=== PATIENT | female | born 1990 | race Hispanic/Latino ===

== ENCOUNTER 2017-07-21 12:27 | Emergency (ER) | payer OTHER ==
[~2017-07-21 12:27] MED LIST: IBUP-2353 PO; NORE-109 PO
[2017-07-21 12:48] LABS: APPEARANCE,URINE Clear (CLEAR); BILIRUBIN,URINE Negative (NEGATIVE); COLOR,URINE Yellow (YELLOW); GLUCOSE, URINE (UA) Negative (NEGATIVE); KETONES,URINE Negative (NEGATIVE); LEUKOCYTE ESTERASE ,URINE Negative (NEGATIVE); NITRATE,URINE Negative (NEGATIVE); OCCULT BLOOD,URINE Negative (NEGATIVE); PROTEIN,URINE Negative (NEGATIVE); UROBILINOGEN,URINE 0.2 mg/dL (0.2-1.0)
[2017-07-21 14:06] LABS: BASOPHILS % (AUTO) 0.8 % (0.0-5.0); EOSINOPHILS % (AUTO) 2.2 % (0.0-8.0); HEMATOCRIT 32.2 % (36-48); LYMPHOCYTES % (AUTO) 23.2 % (21.0-51.0); MEAN CORPUSCULAR HEMOGLOBIN 23.2 pg (27.0-33.0); MEAN CORPUSCULAR HGB CONC 32.7 g/dL (32.0-36.0); MEAN CORPUSCULAR VOLUME 70.9 fL (79-99); MONOCYTES % (AUTO) 7.8 % (3.0-13.0); PLATELET COUNT (AUTO) 292 K/uL (130-400); RED BLOOD CELL COUNT(AUTO) 4.54 MIL/uL (4.00-5.50); RED CELL DISTRIBUTION WIDTH 15.4 % (11.0-15.5); WHITE BLOOD COUNT (AUTO) 8.4 K/uL (4.8-10.8)
[2017-07-21 14:17] LABS: CREATININE 0.6 mg/dL (0.5-1.5); POTASSIUM 3.5 mmol/L (3.5-5.1)
[2017-07-21 15:18] LABS: RAPID GROUP A STREP NEGATIVE (NEGATIVE)
== END 2017-07-21 16:18 | disposition home or self-care (01) ==
LOC: EDH 12:27
DX: B34.9 Viral infection, unspecified (principal); K13.70 Unspecified lesions of oral mucosa; Z88.6 Allergy status to analgesic agent
CPT/HCPCS: 36415; 71046; 74176; 80048; 81003; 81025; 85025; 87804; 87880

== ENCOUNTER → 2017-09-20 | Outpatient (CLI) | payer OTHER ==
[~2017-09-20] MED LIST changes: +iron PO
== END | disposition home or self-care (01) ==
LOC: RAH 13:33
PROVIDERS: ATTEND Obstetrics & Gynecology
DX: N83.01 Follicular cyst of right ovary (principal)
CPT/HCPCS: 76856

== ENCOUNTER 2017-10-06 12:30 | Emergency (ER) | payer OTHER ==
[~2017-10-06 12:30] MED LIST changes: -iron PO
[2017-10-06] MEDS ORDERED: DIPHENHYDRAMINE HCL 25 MG CAPSULE ONE (12:35)
[2017-10-06] MEDS ORDERED: PREDNISONE 20 MG TABLET ONE (13:18)
== END 2017-10-06 13:27 | disposition home or self-care (01) ==
LOC: EDH 12:30
DX: L50.0 Allergic urticaria (principal); Z87.891 Personal history of nicotine dependence
CPT/HCPCS: 99283; Q0163

== ENCOUNTER 2017-10-21 13:45 | Inpatient (IN) | payer OTHER ==
[~2017-10-21] VITALS: Ht 157.5 cm; Wt 68.9 kg
[2017-11-15 09:28] LABS: EOSINOPHILS % (AUTO) 2.6 % (0.0-8.0); LYMPHOCYTES % (AUTO) 22.1 % (21.0-51.0); MEAN CORPUSCULAR HGB CONC 33.7 g/dL (32.0-36.0); MEAN CORPUSCULAR VOLUME 71.3 fL (79-99); MONOCYTES % (AUTO) 7.8 % (3.0-13.0); NEUTROPHILS % (AUTO) 66.5 % (40.0-77.0); PLATELET COUNT (AUTO) 284 K/uL (130-400); RED BLOOD CELL COUNT(AUTO) 4.63 MIL/uL (4.00-5.50); RED CELL DISTRIBUTION WIDTH 19.6 % (11.0-15.5); WHITE BLOOD COUNT (AUTO) 4.8 K/uL (4.8-10.8)
[2017-11-15 09:30] VITALS: BP 128/63
[2017-11-15] MEDS: CEFAZOLIN SODIUM 1 GM VIAL IVP SCH (10:15)
[2017-11-15] MEDS ORDERED: iron PO (10:36)
[2017-11-16] MEDS: CEFAZOLIN SODIUM 1 GM VIAL IVP SCH (10:15)
[2017-11-17] VITALS (20 sets, daily range): BP systolic 103–143; BP diastolic 62–98
[2017-11-17] MEDS ORDERED: LACTATED RINGERS 1000ML 1,000 ML IV ONE (06:30)
[2017-11-17] MEDS ORDERED: LIDOCAINE PF 2% 5ML ABBOJECT ONE (06:47)
[2017-11-17] MEDS ORDERED: ONDANSETRON HCL 4 MG/2 ML VIAL ONE (06:47)
[2017-11-17] MEDS ORDERED: DEXAMETHASONE SOD PHOSPHATE 10MG/ML 1ML VIAL ONE (06:47)
[2017-11-17] MEDS ORDERED: NEOSTIGMINE 5MG/5ML SYR IV ONE (06:47)
[2017-11-17] MEDS ORDERED: SUCCINYLCHOLINE 200MG/10ML SYR ONE (06:47)
[2017-11-17] MEDS ORDERED: GLYCOPYRROLATE 0.2 MG/ML 5 ML VIAL ONE (06:47)
[2017-11-17] MEDS ORDERED: PROPOFOL 10 MG/ML 20ML VIAL IV ONE (06:48)
[2017-11-17] MEDS ORDERED: FENTANYL CITRATE PF 50 MCG/1 ML 2ML VIAL ONE ×4 (06:48→10:11)
[2017-11-17] MEDS ORDERED: MIDAZOLAM HCL 1 MG/ML 2ML VIAL ONE (06:48)
[2017-11-17] MEDS ORDERED: ROCURONIUM BROMIDE 10MG/1ML 5ML VL ONE (06:50)
[2017-11-17] MEDS ORDERED: CALDOLOR 800MG+NS 250ML 250 ML IV SCH (06:59)
[2017-11-17] MEDS ORDERED: KETOROLAC TROMETHAMINE 30MG/ML IV SCH (07:15)
[2017-11-17] MEDS: CEFAZOLIN SODIUM 1 GM VIAL IVP SCH ×2 (07:20→10:15)
[2017-11-17] MEDS ORDERED: SIMETHICONE 80 MG TAB.CHEW PO PRN (09:15)
[2017-11-17] MEDS ORDERED: BISACODYL 10 MG SUPP.RECT RC PRN (09:15)
[2017-11-17] MEDS ORDERED: MEPERIDINE-PF 25 MG/ML SYG ONE ×2 (09:19→09:32)
[2017-11-17] MEDS: PROMETHAZINE HCL 25 MG/ML 1ML AMPULE IM PRN ×5 (09:22→20:43)
[2017-11-17] MEDS: MEPERIDINE-PF 75 MG/ML SYG IM PRN ×5 (10:59→23:59)
[2017-11-17] MEDS: DEXTROSE 5%-LACTATED RINGERS 1,000 ML IV PRN ×2 (11:34→18:38)
[2017-11-18 00:55] VITALS: BP 105/49
[2017-11-18] MEDS: DEXTROSE 5%-LACTATED RINGERS 1,000 ML IV PRN (02:54)
[2017-11-18] MEDS: MEPERIDINE-PF 75 MG/ML SYG IM PRN (03:42)
[2017-11-18 04:35] VITALS: BP 111/58
[2017-11-18 06:42] LABS: HEMATOCRIT 28.7 % (36-48); MEAN CORPUSCULAR HEMOGLOBIN 23.7 pg (27.0-33.0); MEAN CORPUSCULAR HGB CONC 33.4 g/dL (32.0-36.0); MEAN CORPUSCULAR VOLUME 70.9 fL (79-99); PLATELET COUNT (AUTO) 270 K/uL (130-400); RED BLOOD CELL COUNT(AUTO) 4.05 MIL/uL (4.00-5.50); WHITE BLOOD COUNT (AUTO) 8.7 K/uL (4.8-10.8)
[2017-11-18] MEDS ORDERED: HYDROCODONE/ACETAMINOPHEN 5/325 MG TAB PO PRN ×2 (08:00)
[2017-11-18 08:06] VITALS: BP 106/51
[2017-11-18] MEDS ORDERED: IBUPROFEN 800 MG TAB ONE (08:20)
[2017-11-18] MEDS: DOCUSATE SODIUM 100 MG CAP PO PRN ×2 (08:41→21:27)
[2017-11-18] MEDS: IBUPROFEN 800 MG TAB PO SCH ×2 (08:43→17:53)
[2017-11-18] MEDS: CEFAZOLIN SODIUM 1 GM VIAL IVP SCH (10:15)
[2017-11-18 12:20] VITALS: BP 104/62
[2017-11-18] MEDS: TRAMADOL HCL 50 MG TABLET PO PRN ×2 (14:14→19:58)
[2017-11-18 15:55] VITALS: BP 108/69
[2017-11-18] MEDS: SIMETHICONE 80 MG TAB.CHEW PO PRN ×3 (17:00→21:27)
[2017-11-18 20:42] VITALS: BP 102/59
[2017-11-19 00:32] VITALS: BP 102/56
[2017-11-19] MEDS: IBUPROFEN 800 MG TAB PO SCH ×2 (01:16→09:08)
[2017-11-19 04:24] VITALS: BP 98/58
[2017-11-19] MEDS: TRAMADOL HCL 50 MG TABLET PO PRN (07:42)
[2017-11-19 07:53] VITALS: BP 97/62
[2017-11-19] MEDS: DOCUSATE SODIUM 100 MG CAP PO PRN (09:07)
[2017-11-19] MEDS: SIMETHICONE 80 MG TAB.CHEW PO PRN (09:07)
[2017-11-19 12:03] VITALS: BP 98/62
== END 2017-11-19 13:05 | disposition home or self-care (01) | DRG 743 ==
LOC: EDSTATUS 11-15 08:00 → DAHIP 11-17 05:57 → WSH 11-17 10:25
PROVIDERS: ADMIT Obstetrics & Gynecology; ATTEND Obstetrics & Gynecology
PROC: 0UT90ZZ Resection of Uterus, Open Approach (ICD-10-PCS; principal; 2017-11-17 07:15)
DX: N94.6 Dysmenorrhea, unspecified (principal); G89.29 Other chronic pain; N73.6 Female pelvic peritoneal adhesions (postinfective); N80.9 Endometriosis, unspecified; N92.0 Excessive and frequent menstruation with regular cycle; N85.4 Malposition of uterus
CPT/HCPCS: 36415; 84703; 85025; 85027; 86850; 86900; 86901; 88307; A4218; A4344; J0330; J0690; J1100; J1741; J2001; J2175; J2250; J2405; J2550; J2704; J2710; J3010; J3490; J7030; J7120

== ENCOUNTER 2018-04-06 16:03 | Emergency (ER) | payer OTHER ==
[2018-04-06] MEDS ORDERED: IBUPROFEN 200 MG TAB ONE (16:16)
[2018-04-06] MEDS ORDERED: IBUPROFEN 400 MG TABLET ONE (16:16)
== END 2018-04-06 17:06 | disposition home or self-care (01) ==
LOC: EDH 16:03
DX: S43.491A Other sprain of right shoulder joint, initial encounter (principal); Z88.6 Allergy status to analgesic agent; Z90.710 Acquired absence of both cervix and uterus; Z98.51 Tubal ligation status; X58.XXXA Exposure to other specified factors, initial encounter; Y93.89 Activity, other specified; Y92.89 Other specified places as the place of occurrence of the external cause; Y99.8 Other external cause status
CPT/HCPCS: 73030

== ENCOUNTER → 2018-05-11 | Outpatient (CLI) | payer OTHER | END | disposition home or self-care (01) | LOC: RAH 13:09 | PROVIDERS: ATTEND Family Medicine | DX: S43.401A Unspecified sprain of right shoulder joint, initial encounter (principal); M19.011 Primary osteoarthritis, right shoulder; X58.XXXA Exposure to other specified factors, initial encounter; Y93.89 Activity, other specified; Y92.89 Other specified places as the place of occurrence of the external cause; Y99.8 Other external cause status | CPT/HCPCS: 73221 ==

== ENCOUNTER 2018-10-21 22:49 | Emergency (ER) | payer OTHER ==
[2018-10-21 23:39] LABS: APPEARANCE,URINE Clear (CLEAR); BILIRUBIN,URINE Negative (NEGATIVE); COLOR,URINE Yellow (YELLOW); GLUCOSE, URINE (UA) Negative (NEGATIVE); KETONES,URINE Trace mg/dL (NEGATIVE); LEUKOCYTE ESTERASE ,URINE Moderate (NEGATIVE); NITRATE,URINE Negative (NEGATIVE); OCCULT BLOOD,URINE Negative (NEGATIVE); PROTEIN,URINE Negative (NEGATIVE)
[2018-10-21 23:51] LABS: BACTERIA,URINE Many /HPF (None Seen); RBC,URINE 0-1 /HPF (0-1); SQUAMOUS EPITHELIAL CELL,UR Few /HPF (0-2)
[2018-10-21 23:53] LABS: BASOPHILS % (AUTO) 0.9 % (0.0-5.0); EOSINOPHILS % (AUTO) 2.5 % (0.0-8.0); HEMATOCRIT 34.7 % (36-48); LYMPHOCYTES % (AUTO) 27.1 % (21.0-51.0); MEAN CORPUSCULAR HEMOGLOBIN 26.9 pg (27.0-33.0); MEAN CORPUSCULAR HGB CONC 33.7 g/dL (32.0-36.0); MONOCYTES % (AUTO) 9.6 % (3.0-13.0); NEUTROPHILS % (AUTO) 59.9 % (40.0-77.0); PLATELET COUNT (AUTO) 272 K/uL (130-400); RED BLOOD CELL COUNT(AUTO) 4.34 MIL/uL (4.00-5.50); RED CELL DISTRIBUTION WIDTH 14.6 % (11.0-15.5); WHITE BLOOD COUNT (AUTO) 7.9 K/uL (4.8-10.8)
[2018-10-21] MEDS ORDERED: IOHEXOL-350 75 ML VIAL IV ONE (23:55)
[2018-10-22 00:08] LABS: POTASSIUM 3.3 mmol/L (3.5-5.1)
[2018-10-22 00:11] LABS: ALBUMIN 3.7 g/dL (3.5-5.0); BILIRUBIN,DIRECT 0.1 mg/dL (0.0-0.3); BILIRUBIN,TOTAL 0.3 mg/dL (0.2-1.0); TOTAL PROTEIN, SERUM 7.5 g/dL (6.0-8.3)
[2018-10-22] MEDS ORDERED: KETOROLAC TROMETHAMINE 30MG/ML ONE (00:16)
[2018-10-22] MEDS ORDERED: BISACODYL 10 MG SUPP.RECT RC ONE (01:10)
[2018-10-22] MEDS ORDERED: MAGNESIUM CITRATE 296 ML SOLUTION ONE (01:10)
== END 2018-10-22 01:16 | disposition home or self-care (01) ==
LOC: EDH 22:49
DX: N39.0 Urinary tract infection, site not specified (principal); K59.00 Constipation, unspecified; R10.31 Right lower quadrant pain; Z88.5 Allergy status to narcotic agent; Z88.6 Allergy status to analgesic agent; Z98.51 Tubal ligation status; Z90.710 Acquired absence of both cervix and uterus; Z98.890 Other specified postprocedural states
CPT/HCPCS: 36415; 74177; 80048; 80076; 81001; 83690; 85025; 96374; 99285; J1885; Q9967

== ENCOUNTER 2019-02-20 17:42 | Emergency (ER) | payer OTHER ==
[2019-02-20] MEDS ORDERED: KETOROLAC TROMETHAMINE 60 MG/2 ML VIAL ONE (18:16)
[2019-02-20] MEDS ORDERED: ONDANSETRON ODT 4 MG TAB ONE (19:47)
[2019-02-20] MEDS ORDERED: MORPHINE SULFATE 2 MG/ML 1ML SYG ONE (19:48)
== END 2019-02-20 20:19 | disposition home or self-care (01) ==
LOC: EDH 17:42
DX: S29.012A Strain of muscle and tendon of back wall of thorax, initial encounter (principal); R07.89 Other chest pain; Z88.5 Allergy status to narcotic agent; Z88.6 Allergy status to analgesic agent; Z90.710 Acquired absence of both cervix and uterus; V49.40XA Driver injured in collision with unspecified motor vehicles in traffic accident, initial encounter; Y93.89 Activity, other specified; Y92.89 Other specified places as the place of occurrence of the external cause; Y99.8 Other external cause status
CPT/HCPCS: 71046; 72128; 96372 ×2; 99284; J1885

== ENCOUNTER 2019-08-04 15:06 | Emergency (ER) | payer OTHER ==
[2019-08-04 15:50] LABS: BASOPHILS % (AUTO) 0.4 % (0.0-5.0); HEMATOCRIT 39.2 % (36-48); LYMPHOCYTES % (AUTO) 6.4 % (21.0-51.0); MEAN CORPUSCULAR HEMOGLOBIN 27.8 pg (27.0-33.0); MEAN CORPUSCULAR HGB CONC 32.7 g/dL (32.0-36.0); NEUTROPHILS % (AUTO) 90.5 % (40.0-77.0); PLATELET COUNT (AUTO) 327 K/uL (130-400); RED BLOOD CELL COUNT(AUTO) 4.61 MIL/uL (4.00-5.50); RED CELL DISTRIBUTION WIDTH 13.3 % (11.0-15.5); WHITE BLOOD COUNT (AUTO) 11.3 K/uL (4.8-10.8)
[2019-08-04] MEDS ORDERED: IBUPROFEN 600 MG TABLET ONE (15:56)
[2019-08-04] MEDS ORDERED: SODIUM CHLORIDE 0.9% 1000ML 1,000 ML IV ONE (15:56)
[2019-08-04 16:03] LABS: CREATININE 0.9 mg/dL (0.5-1.5); POTASSIUM 3.7 mmol/L (3.5-5.1)
[2019-08-04 16:08] LABS: ALBUMIN 3.6 g/dL (3.5-5.0); BILIRUBIN,TOTAL 0.3 mg/dL (0.2-1.0); TOTAL PROTEIN, SERUM 7.8 g/dL (6.0-8.3)
[2019-08-04 16:31] LABS: APPEARANCE,URINE CLOUDY (CLEAR); BILIRUBIN,URINE NEGATIVE (NEGATIVE); COLOR,URINE YELLOW (YELLOW); GLUCOSE, URINE (UA) NEGATIVE (NEGATIVE); KETONES,URINE NEGATIVE (NEGATIVE); LEUKOCYTE ESTERASE ,URINE NEGATIVE (NEGATIVE); NITRATE,URINE NEGATIVE (NEGATIVE); OCCULT BLOOD,URINE NEGATIVE (NEGATIVE); PH,URINE >=9.0 (5.0-8.0); PROTEIN,URINE NEGATIVE (NEGATIVE)
[2019-08-04 16:32] LABS: HCG,QUAL RESULT NEGATIVE (NEGATIVE)
[2019-08-04 16:42] LABS: AMORPHOUS SEDIMENT,UR Moderate /LPF (None Seen); BACTERIA,URINE Few /HPF (None Seen); MUCUS,URINE Rare LPF (None Seen); RBC,URINE 0-1 /HPF (0-1); SQUAMOUS EPITHELIAL CELL,UR 0-2 /HPF (0-2); WBC,URINE 0-1 /HPF (0-1)
== END 2019-08-04 18:02 | disposition home or self-care (01) ==
LOC: EDH 15:06
DX: R00.0 Tachycardia, unspecified (principal); R05 Cough; R06.02 Shortness of breath; Z90.710 Acquired absence of both cervix and uterus; Z88.6 Allergy status to analgesic agent; Z98.890 Other specified postprocedural states
CPT/HCPCS: 36415; 71046; 80053; 81001; 81025; 84443; 84484; 85025; 85378; 93005 ×2; 99285; J7030

== ENCOUNTER 2019-08-13 09:51 | Emergency (ER) | payer OTHER ==
[2019-08-13] MEDS ORDERED: ONDANSETRON ODT 4 MG TAB ONE (10:41)
[2019-08-13] MEDS ORDERED: IBUPROFEN 600 MG TABLET ONE (10:41)
[2019-08-13 11:23] LABS: RAPID GROUP A STREP NEGATIVE (NEGATIVE)
== END 2019-08-13 13:25 | disposition home or self-care (01) ==
LOC: EDH 09:51
DX: B34.9 Viral infection, unspecified (principal); J30.2 Other seasonal allergic rhinitis; Z90.710 Acquired absence of both cervix and uterus; Z98.890 Other specified postprocedural states; Z88.6 Allergy status to analgesic agent; Z88.5 Allergy status to narcotic agent
CPT/HCPCS: 87804; 87880

== ENCOUNTER → 2019-09-12 | Outpatient (CLI) | payer OTHER | END | disposition home or self-care (01) | LOC: SHCH 08:45 | PROVIDERS: ATTEND Internal Medicine Cardiovascular Disease | DX: R00.2 Palpitations (principal) | CPT/HCPCS: 93306; 93356 ==

== ENCOUNTER 2020-04-03 15:13 | Emergency (ER) | payer OTHER ==
[2020-04-03 15:32] LABS: BASOPHILS % (AUTO) 0.6 % (0.0-5.0); EOSINOPHILS % (AUTO) 4.7 % (0.0-8.0); LYMPHOCYTES % (AUTO) 22.3 % (21.0-51.0); MEAN CORPUSCULAR HEMOGLOBIN 29.4 pg (27.0-33.0); MEAN CORPUSCULAR HGB CONC 34.8 g/dL (32.0-36.0); MEAN CORPUSCULAR VOLUME 84.7 fL (79-99); NEUTROPHILS % (AUTO) 65.1 % (40.0-77.0); PLATELET COUNT (AUTO) 293 K/uL (130-400); RED BLOOD CELL COUNT(AUTO) 4.72 MIL/uL (4.00-5.50); RED CELL DISTRIBUTION WIDTH 12.8 % (11.0-15.5); WHITE BLOOD COUNT (AUTO) 7.8 K/uL (4.8-10.8)
[2020-04-03 15:53] LABS: CREATININE 0.8 mg/dL (0.5-1.5); POTASSIUM 3.4 mmol/L (3.5-5.1)
[2020-04-03 15:54] LABS: INR 0.9 (0.85-1.15); PARTIAL THROMBOPLASTIN TIME 24.2 SEC (26.3-35.5); PROTHROMBIN TIME 9.8 SEC (9.6-11.6)
[2020-04-03 15:57] LABS: BILIRUBIN,TOTAL 0.3 mg/dL (0.2-1.0); TOTAL PROTEIN, SERUM 8.3 g/dL (6.0-8.3)
[2020-04-03] MEDS ORDERED: SODIUM CHLORIDE 0.9% 1000ML 1,000 ML IV ONE ×2 (16:07→17:34)
[2020-04-03] MEDS ORDERED: KETOROLAC TROMETHAMINE 30MG/ML ONE (16:17)
[2020-04-03] MEDS ORDERED: IOHEXOL-350 75 ML VIAL IV ONE (16:54)
== END 2020-04-03 18:40 | disposition home or self-care (01) ==
LOC: EDH 15:13
DX: M79.605 Pain in left leg (principal); R00.0 Tachycardia, unspecified; Z88.6 Allergy status to analgesic agent; Z90.710 Acquired absence of both cervix and uterus
CPT/HCPCS: 36415; 71275; 80053; 82550; 84484; 85025; 85378; 85610; 85730; 93971; 96361; 96374; 99285; J1885; J7030 ×2; Q9967

== ENCOUNTER → 2022-01-12 | Outpatient (CLI) | payer OTHER ==
[2022-01-12 12:49] LABS: ALBUMIN 3.5 g/dL (3.5-5.0); CREATININE 0.8 mg/dL (0.5-1.5); MAGNESIUM 1.9 mg/dL (1.80-2.40); PHOSPHORUS 3.5 mg/dL (2.5-4.9); POTASSIUM 4.1 mmol/L (3.5-5.1); THYROID STIMULATING HORMONE 2.25 uIU/mL (0.36-3.74); TOTAL PROTEIN, SERUM 7.3 g/dL (6.0-8.3)
== END | disposition home or self-care (01) ==
LOC: LAB 09:21
PROVIDERS: ATTEND Internal Medicine Cardiovascular Disease
DX: R00.2 Palpitations (principal); R06.02 Shortness of breath; R00.0 Tachycardia, unspecified
CPT/HCPCS: 36415; 80053; 83735; 84100; 84439; 84443; 84480

== ENCOUNTER 2022-05-24 10:48 | Emergency (ER) | payer OTHER ==
[~2022-05-24] VITALS: Ht 154.9 cm; Wt 74.8 kg
[2022-05-24 11:15] LABS: BASOPHILS % (AUTO) 0.9 % (0.0-5.0); EOSINOPHILS % (AUTO) 2.6 % (0.0-8.0); HEMATOCRIT 39.1 % (36-48); LYMPHOCYTES % (AUTO) 25.3 % (21.0-51.0); MEAN CORPUSCULAR HEMOGLOBIN 28.8 pg (27.0-33.0); MEAN CORPUSCULAR HGB CONC 34.5 g/dL (32.0-36.0); MEAN CORPUSCULAR VOLUME 83.5 fL (79-99); MONOCYTES % (AUTO) 9.6 % (3.0-13.0); NEUTROPHILS % (AUTO) 60.8 % (40.0-77.0); PLATELET COUNT (AUTO) 330 K/uL (130-400); RED BLOOD CELL COUNT(AUTO) 4.68 MIL/uL (4.00-5.50); RED CELL DISTRIBUTION WIDTH 12.2 % (11.0-15.5); WHITE BLOOD COUNT (AUTO) 6.4 K/uL (4.8-10.8)
[2022-05-24 11:27] LABS: CREATININE 0.8 mg/dL (0.5-1.5); POTASSIUM 4.1 mmol/L (3.5-5.1)
[2022-05-24 11:34] LABS: ALBUMIN 3.8 g/dL (3.5-5.0); TOTAL PROTEIN, SERUM 7.9 g/dL (6.0-8.3)
[2022-05-24 13:23] VITALS: BP 142/88
== END 2022-05-24 13:48 | disposition home or self-care (01) ==
LOC: EDH 10:48
DX: F41.9 Anxiety disorder, unspecified (principal); Z20.822 Contact with and (suspected) exposure to COVID-19; Z98.890 Other specified postprocedural states; Z88.6 Allergy status to analgesic agent; Z88.5 Allergy status to narcotic agent
CPT/HCPCS: 99284; 87635; 84484; 80053; 85025; 87804 ×2; 36415; 93005; C9803

== ENCOUNTER 2023-08-05 09:48 | Emergency (ER) | payer OTHER ==
[~2023-08-05] VITALS: Ht 157.5 cm; Wt 75.3 kg
[2023-08-05 11:28] LABS: APPEARANCE,URINE CLEAR (CLEAR); BILIRUBIN,URINE NEGATIVE (NEGATIVE); COLOR,URINE LIGHT-YELLOW (YELLOW); GLUCOSE, URINE (UA) NEGATIVE (NEGATIVE); KETONES,URINE NEGATIVE (NEGATIVE); LEUKOCYTE ESTERASE ,URINE NEGATIVE Leu/uL (NEGATIVE); NITRATE,URINE NEGATIVE (NEGATIVE); OCCULT BLOOD,URINE NEGATIVE (NEGATIVE); PH,URINE 6.5 (5.0-8.0); PROTEIN,URINE NEGATIVE (NEGATIVE); UROBILINOGEN,URINE 0.2 mg/dL (0.2-1.0)
[2023-08-05 11:32] LABS: HCG,QUALITATIVE URINE NEGATIVE (NEGATIVE)
[2023-08-05 11:36] LABS: ADD UA MICROSCOPIC NO
[2023-08-05] MEDS: KETOROLAC 15MG/ML VIAL (15MG/ML) IM ONE (12:11)
[2023-08-05 12:46] VITALS: BP 125/78; PULSE 90; RESP 16; O2SAT 100
== END 2023-08-05 12:54 | disposition home or self-care (01) ==
LOC: EDH 09:48
DX: S39.012A Strain of muscle, fascia and tendon of lower back, initial encounter (principal); Z88.5 Allergy status to narcotic agent; Z90.710 Acquired absence of both cervix and uterus; X58.XXXA Exposure to other specified factors, initial encounter; Y93.89 Activity, other specified; Y92.89 Other specified places as the place of occurrence of the external cause; Y99.8 Other external cause status
CPT/HCPCS: 99284; 81003; 81025; 72100; 96372; J1885